=== PATIENT | female | born 1960 | race Caucasian/White ===

== ENCOUNTER → 2017-05-23 | Outpatient (CLI) | payer BC ==
[2017-05-23 12:59] LABS: CALCIUM 9.2 mg/dL (8.5-10.1); CREATININE 1.1 mg/dL (0.6-1.0); GFR 51.6; POTASSIUM 3.2 mmol/L (3.5-5.1)
[2017-05-23 13:12] LABS: BASO # 0.1 x10^3/uL (0.0-0.2); BASO % 1 % (0-3); EOS # 0.2 x10^3/uL (0.0-0.7); EOS % 3 % (0-3); HEMATOCRIT 39.5 % (36.0-47.0); HEMOGLOBIN 13.6 g/dL (12.0-15.5); LYMPH # 1.8 x10^3/uL (1.0-4.8); LYMPH % 28 % (24-48); MEAN CORPUSCULAR HEMOGLOBIN 32 pg (25-35); MEAN CORPUSCULAR HGB CONC 34 g/dL (31-37); MEAN CORPUSCULAR VOLUME 92 fL (79-100); MONO # 0.4 x10^3/uL (0.0-1.1); MONO % 7 % (0-9); NEUT # 3.9 x10^3uL (1.8-7.7); NEUT % 62 % (31-73); PLATELET COUNT 257 x10^3/uL (140-400); RED BLOOD COUNT 4.29 x10^6/uL (3.50-5.40); RED CELL DISTRIBUTION WIDTH 13.7 % (11.5-14.5); WHITE BLOOD COUNT 6.3 x10^3/uL (4.0-11.0)
[2017-05-23 13:18] LABS: BILIRUBIN,URINE NEG (NEG); CLARITY,URINE CLEAR; COLOR,URINE STRAW; GLUCOSE,URINE NEG (NEG)
[2017-05-23 13:19] LABS: NITRITE,URINE NEG (NEG); UROBILINOGEN,URINE 0.2 mg/dL (0.2 mg/dL)
== END | disposition home or self-care (01) ==
LOC: LAB 12:06
PROVIDERS: ATTEND Nurse Practitioner
DX: R55 Syncope and collapse (principal)
CPT/HCPCS: 36415; 80048; 81003; 84443; 85025

== ENCOUNTER 2017-06-24 17:21 | Emergency (ER) | payer BC ==
[2017-06-24] MEDS ORDERED: KETOROLAC 60 MG/2 ML VIAL. IM ONE (19:00)
[2017-06-24] MEDS ORDERED: HYDROcodone/APAP 5/325MG 1 TAB TABLET PO ONE (19:00)
--- NOTE | 2017-06-24 19:56 | RAD ---
EXAM: Left lower extremity venous Doppler sonogram. HISTORY: Pain. TECHNIQUE: Bee scale and color Doppler sonographic evaluation of the left lower extremity veins with spectral waveform analysis was performed. FINDINGS: There is normal color flow, normal compressibility and there are normal spectral waveforms in the common femoral, superficial femoral, popliteal, posterior tibial and greater saphenous veins. There is a small left knee effusion. IMPRESSION: 1. No Doppler evidence of lower extremity deep venous thrombosis. 2. Small left knee effusion. Electronically signed by: Sonam Felipe MD (06/24/2017 7:53 PM) [facility]
--- NOTE | 2017-06-24 20:25 | PHYS DOC ---
Past History Past Medical History: Fibromyalgia, Other Past Surgical History: No Surgical History Alcohol Use: None Drug Use: None Adult General Chief Complaint Chief Complaint: LOWER EXT PAIN HPI HPI 57-year-old morbidly obese female with past medical history of lymphedema now presents to the emergency department complaining of left lower extremity pain. Patient states she has pain behind her left calf and she was concerned she might have a blood clot. No skin changes. No fevers chills sweats or shaking chills. No productive cough or pleuritic pain. Patient has no shortness of breath or restaurant symptoms of any kind Review of Systems Review of Systems Constitutional: Denies fever or chills [] Eyes: Denies change in visual acuity, redness, or eye pain [] HENT: Denies nasal congestion or sore throat [] Respiratory: Denies cough or shortness of breath [] Cardiovascular: No additional information not addressed in HPI [] GI: Denies abdominal pain, nausea, vomiting, bloody stools or diarrhea [] : Denies dysuria or hematuria [] Musculoskeletal: Denies back pain or joint pain [] Integument: Denies rash or skin lesions [] Neurologic: Denies headache, focal weakness or sensory changes [] Endocrine: Denies polyuria or polydipsia [] Current Medications Current Medications Current Medications Medications (Trade) Dose Ordered Sig/[facility] Start Time Stop Time Status Last Admin Dose Admin Acetaminophen/ Hydrocodone Bitart (Lortab 5/325) 1 tab 1X ONCE 06/24/17 19:00 06/24/17 19:01 DC 06/24/17 19:45 1 TAB Ketorolac Tromethamine (Toradol) 60 mg 1X ONCE 06/24/17 19:00 06/24/17 19:01 DC 06/24/17 19:45 60 MG Allergies Allergies Allergies Coded Allergies Type Severity Reaction Last Updated Verified Penicillins Allergy Intermediate 06/24/17 Yes Sulfa (Sulfonamide Antibiotics) Allergy Intermediate 06/24/17 Yes Physical Exam Physical Exam Well-appearing morbidly obese female in no acute distress alert communicative cooperative and appropriate Constitutional: Well developed, well nourished, no acute distress, non-toxic appearance. [] HENT: Normocephalic, atraumatic, bilateral external ears normal, oropharynx moist, no oral exudates, nose normal. [] Eyes: PERRLA, EOMI, conjunctiva normal, no discharge. [] Neck: Normal range of motion, no tenderness, supple, no stridor. [] Cardiovascular:Heart rate regular rhythm, no murmur [] Lungs & Thorax: Bilateral breath sounds clear to auscultation [] Abdomen: Bowel sounds normal, soft, no tenderness, no masses, no pulsatile masses. [] Skin: Warm, dry, no erythema, no rash. [] Back: No tenderness, no CVA tenderness. [] Extremities: Left Mild soft tissue tenderness no erythema warmth or cords skin changes. No cyanosis, no clubbing, ROM intact, 2+ nonpitting edema bilateral lower extremities baseline per patient[] Neurologic: Alert and oriented X 3, normal motor function, normal sensory function, no focal deficits noted. [] Psychologic: Affect normal, judgement normal, mood normal. [] Current Patient Data Vital Signs Vital Signs Date Time Temp Pulse Resp B/P (MAP) Pulse Ox O2 Delivery O2 Flow Rate FiO2 06/24/17 17:26 98.3 84 16 98 Room Air EKG EKG [] Radiology/Procedures Radiology/Procedures [] Course & Med Decision Making Course & Med Decision Making Pertinent Labs and Imaging studies reviewed. (See chart for details) Signs and symptoms consistent with discomfort of lower extremities from chronic lymphedema versus possibility of acute DVT. No clinical evidence of cellulitis abscess or skin lesion. Soft compartments and no recent trauma. Ultrasound leg shows no DVT. Patient aware to elevate legs whenever possible and follow-up with her doctor regarding any adjustments that may be indicated in her diuretic regimen. No further workup or treatment indicated patient agrees with outpatient follow-up and strict return precautions given [] Dragon Disclaimer Dragon Disclaimer This chart was dictated in whole or in part using Voice Recognition software in a busy, high-work load, and often noisy Emergency Department environment. It may contain unintended and wholly unrecognized errors or omissions. Departure Departure: Impression: Primary Impression: Lymphedema Additional Impression: Lower extremity pain Disposition: 01 HOME, SELF-CARE Condition: STABLE Referrals: SAMMY TOVAR MD (PCP) Patient Instructions: Lymphedema Additional Instructions: It appears that the pain in her left leg is from your chronic lymphedema. You have no evidence of blood clot including neither a deep vein thrombosis or evidence of superficial venous thrombosis or phlebitis. Ultrasound of your left leg was unremarkable. Elevate both legs whenever possible to help with your chronic lymphedema. Follow-up with your doctor tomorrow to discuss your diuretic regimen and make adjustments if indicated. Take ibuprofen every 6 hours and Tylenol every 4 hours as needed for discomfort. Return immediately for new severe worsening symptoms Problem Qualifiers INES HU MD Jun 24, 2017 20:24
[2017-06-24 20:36] VITALS: BP 132/71
== END 2017-06-24 20:36 | disposition home or self-care (01) ==
LOC: ER 17:21
DX: I89.0 Lymphedema, not elsewhere classified (principal); M79.605 Pain in left leg; E66.01 Morbid (severe) obesity due to excess calories; M79.7 Fibromyalgia; Z88.0 Allergy status to penicillin; Z88.2 Allergy status to sulfonamides
CPT/HCPCS: 93971; 96372; 99284; J1885

== ENCOUNTER 2018-02-08 11:02 | Observation (INO) | payer BC, OTHER ==
[~2018-02-08] VITALS: Ht 165.1 cm; Wt 110.2 kg
--- NOTE | 2018-02-08 11:31 | PHYS DOC ---
Past History Past Medical History: Fibromyalgia, Hypertension, Other Past Surgical History: No Surgical History Additional Smoking Information: quitting smoking Alcohol Use: None Drug Use: None Adult General Chief Complaint Chief Complaint: General Complaint HPI HPI Patient is a 57-year-old morbidly obese female who presents for evaluation of general malaise. She states that she is just not feeling well. She states "I know there is something wrong". She does state that she feels tired and somewhat lightheaded and that she has been having some intermittent chest discomfort and shortness of breath. Her PCP is Dr. Sammy Rizzo. She reports a history of hypertension, lymphedema, hyperlipidemia, and fibromyalgia. She had a heart catheterization about 4 years ago which was unremarkable. She is alert and oriented 4, calm, and appears to be in no distress. She denies headache or vision changes, neck pain, abdominal pain, back or flank pain, nausea or vomiting, fevers or chills, rectal bleeding, or dysuria. Review of Systems Review of Systems Constitutional: Denies fever or chills, general malaise present Eyes: Denies change in visual acuity, redness, or eye pain [] HENT: Denies nasal congestion or sore throat [] Respiratory: Denies cough, mild SOB Cardiovascular: No additional information not addressed in HPI, +cp GI: Denies abdominal pain, nausea, vomiting, bloody stools or diarrhea [] : Denies dysuria or hematuria [] Musculoskeletal: Denies back pain or joint pain [] Integument: Denies rash or skin lesions [] Neurologic: Denies headache, focal weakness or sensory changes [] Endocrine: Denies polyuria or polydipsia [] All other systems were reviewed and found to be within normal limits, except as documented in this note. Allergies Allergies Allergies Coded Allergies Type Severity Reaction Last Updated Verified Penicillins Allergy Intermediate 06/24/17 Yes Sulfa (Sulfonamide Antibiotics) Allergy Intermediate 06/24/17 Yes Physical Exam Physical Exam Constitutional: Well developed, well nourished, no acute distress, non-toxic appearance. obese, pleasant, calm HENT: Normocephalic, atraumatic, bilateral external ears normal, oropharynx moist, no oral exudates, nose normal. [] Eyes: PERRLA, EOMI, conjunctiva normal, no discharge. [] Neck: Normal range of motion, no tenderness, supple, no stridor. [] Cardiovascular:Heart rate regular rhythm, no murmur [] Lungs & Thorax: Bilateral breath sounds clear to auscultation [] Abdomen: Bowel sounds normal, soft, no tenderness, no masses, no pulsatile masses. [] Skin: Warm, dry, no erythema, no rash. [] Back: No tenderness, no CVA tenderness. [] Extremities: No tenderness, no cyanosis, no clubbing, ROM intact, +significant lymphedema in b/l legs (pt states at baseline) Neurologic: Alert and oriented X 3, normal motor function, normal sensory function, no focal deficits noted. [] Psychologic: Affect normal, judgement normal, mood normal. [] Current Patient Data Vital Signs Vital Signs Date Time Temp Pulse Resp B/P (MAP) Pulse Ox O2 Delivery O2 Flow Rate FiO2 02/08/18 11:17 98.4 68 22 100 Room Air EKG EKG Sinus bradycardia, rate of 58, no acute ischemic findings, normal axis, no STEMI , reviewed and interpreted by myself Radiology/Procedures Radiology/Procedures [place] [id number] IMAGING REPORT Signed PATIENT: MONICA MANRIQUE ACCOUNT: [id number] : 1960 LOCATION: ER AGE: 57 SEX: F EXAM STATUS: REG ER ORD. PHYSICIAN: EVELYN TOMLINSON DO REASON: cp PROCEDURE: PORTABLE CHEST 1V Chest radiograph 02/08/2018 11:11 AM INDICATION: Chest pain COMPARISON: CT chest May 28, 2013 TECHNIQUE: Frontal view of the chest is provided. FINDINGS: The cardiomediastinal silhouette is within normal limits. There are no pleural effusions. There is no pulmonary vascular congestion. There is no pneumothorax. The lungs are clear. No significant osseous abnormality is identified. IMPRESSION: No acute cardiopulmonary process. Electronically signed by: Jose Mejia MD (02/08/2018 11:33 AM) [facility] DICTATED AND SIGNED BY: JOSE MEJIA MD DATE: 02/08/18 1133 CC: EVELYN TOMLINSON DO; SAMMY TOVAR MD ~ Course & Med Decision Making Course & Med Decision Making Pertinent Labs and Imaging studies reviewed. (See chart for details) @ 1315 - patient updated on lab and imaging results. She agrees with the plan to be admitted. Dr. Rizzo accepts the observation admission. Dragon Disclaimer Dragon Disclaimer This electronic medical record was generated, in whole or in part, using a voice recognition dictation system. Departure Departure: Impression: Primary Impression: Chest pain Additional Impression: Fatigue Disposition: ADMITTED INPATIENT Admitting Physician: Sammy Tovar Condition: STABLE Referrals: SAMMY TOVAR MD (PCP) Problem Qualifiers EVELYN TOMLINSON DO Feb 08, 2018 11:31
--- NOTE | 2018-02-08 11:37 | RAD ---
Chest radiograph 02/08/2018 11:11 AM INDICATION: Chest pain COMPARISON: CT chest May 28, 2013 TECHNIQUE: Frontal view of the chest is provided. FINDINGS: The cardiomediastinal silhouette is within normal limits. There are no pleural effusions. There is no pulmonary vascular congestion. There is no pneumothorax. The lungs are clear. No significant osseous abnormality is identified. IMPRESSION: No acute cardiopulmonary process. Electronically signed by: Sera Pollock MD (02/08/2018 11:33 AM) [facility]
[2018-02-08] MEDS ORDERED: ASPIRIN 325 MG TABLET PO ONE (11:45)
--- NOTE | 2018-02-08 12:02 | EKG ---
[address] [address] Test Date: 2018-02-08 Test Time: 11:55:57 Pat Name: MONICA MANRIQUE Department: Room: Gender: F [employer]: : 1960 Requested By: EVELYN TOMLINSON Order Number: [id number] Reading MD: Santo Escobedo MD Measurements Intervals [place] Rate: 58 P: 36 NV: 212 QRS: 35 QRSD: 90 T: 63 QT: 438 QTc: 429 Interpretive Statements SINUS RHYTHM Electronically Signed On 02-12-2018 14:17:12 CDT by Santo Escobedo MD
[2018-02-08 12:43] LABS: BASO # 0.1 x10^3/uL (0.0-0.2); BASO % 1 % (0-3); EOS # 0.4 x10^3/uL (0.0-0.7); EOS % 6 % (0-3); HEMATOCRIT 44.2 % (36.0-47.0); LYMPH # 1.8 x10^3/uL (1.0-4.8); LYMPH % 31 % (24-48); MEAN CORPUSCULAR HEMOGLOBIN 32 pg (25-35); MEAN CORPUSCULAR HGB CONC 34 g/dL (31-37); MEAN CORPUSCULAR VOLUME 94 fL (79-100); MONO # 0.3 x10^3/uL (0.0-1.1); MONO % 6 % (0-9); NEUT # 3.2 x10^3uL (1.8-7.7); NEUT % 56 % (31-73); PLATELET COUNT 240 x10^3/uL (140-400); RED BLOOD COUNT 4.72 x10^6/uL (3.50-5.40); WHITE BLOOD COUNT 5.8 x10^3/uL (4.0-11.0)
[2018-02-08 12:49] LABS: BACTERIA,URINE 0 /HPF (0-FEW); BILIRUBIN,URINE NEG (NEG); CLARITY,URINE CLEAR; COLOR,URINE YELLOW; GLUCOSE,URINE NEG (NEG); NITRITE,URINE NEG (NEG); RBC,URINE OCC /HPF (0-2); UROBILINOGEN,URINE 0.2 mg/dL (0.2 mg/dL)
[2018-02-08 12:50] LABS: SQUAMOUS EPITHELIAL CELL,UR FEW /LPF
[2018-02-08] MEDS ORDERED: LOVA40TA2 PO (12:50)
[2018-02-08] MEDS ORDERED: MELO15TA23 PO (12:50)
[2018-02-08] MEDS ORDERED: LEVO50TA5 PO (12:50)
[2018-02-08] MEDS ORDERED: POTA10TA10 PO ×3 (12:50→17:09)
[2018-02-08] MEDS ORDERED: LISI-334 PO (12:50)
[2018-02-08] MEDS ORDERED: FURO-68 PO (12:50)
[2018-02-08] MEDS ORDERED: PANT40TA3 PO (12:50)
[2018-02-08 13:04] LABS: ALBUMIN 4.3 g/dL (3.4-5.0); ALBUMIN/GLOBULIN RATIO 1.3 (1.0-1.7); CALCIUM 9.2 mg/dL (8.5-10.1); CREATININE 1.1 mg/dL (0.6-1.0); GFR 51.6; MAGNESIUM 2.3 mg/dL (1.8-2.4); POTASSIUM 3.7 mmol/L (3.5-5.1); TOTAL BILIRUBIN 0.5 mg/dL (0.2-1.0); TOTAL PROTEIN 7.7 g/dL (6.4-8.2)
[2018-02-08 15:50] VITALS: BP 116/79
[2018-02-08] MEDS ORDERED: CHOL10003 PO (17:09)
[2018-02-08] MEDS ORDERED: CETI10TA16 PO (17:09)
[2018-02-08] MEDS ORDERED: OMEP40CA5 PO (17:09)
[2018-02-08] MEDS ORDERED: ASPI-630 PO (17:09)
[2018-02-08] MEDS ORDERED: FLAX100031 PO (17:09)
[2018-02-08 19:46] VITALS: BP 132/74
[2018-02-08] MEDS: CHOLECALCIFEROL (VITAMIN D3) 1,000 UNIT TABLET PO SCH (20:46)
[2018-02-08] MEDS ORDERED: POTASSIUM CHLORIDE 10 MEQ TABLET.ER. PO SCH (21:00)
[2018-02-08 22:29] VITALS: BP 111/54
[2018-02-09 03:00] VITALS: BP 110/60
[2018-02-09] MEDS ORDERED: LEVOTHYROXINE 50 MCG TABLET PO SCH (07:00)
[2018-02-09 08:08] VITALS: BP 120/68
[2018-02-09] MEDS: CHOLECALCIFEROL (VITAMIN D3) 1,000 UNIT TABLET PO SCH (08:22)
[2018-02-09] MEDS ORDERED: POTASSIUM CHLORIDE 20 MEQ TABLET.ER. PO SCH (09:00)
[2018-02-09] MEDS ORDERED: MELOXICAM 15 MG TABLET. PO SCH (09:00)
[2018-02-09] MEDS ORDERED: LISINOPRIL 20 MG TABLET PO SCH ×2 (09:00→21:00)
[2018-02-09] MEDS ORDERED: ATORVASTATIN CALCIUM 10 MG TABLET. PO SCH ×2 (09:00→21:00)
[2018-02-09] MEDS ORDERED: CETIRIZINE HCL 10 MG TABLET PO SCH ×2 (09:00→21:00)
[2018-02-09] MEDS ORDERED: FUROSEMIDE 40 MG TABLET PO SCH (09:00)
[2018-02-09] MEDS ORDERED: ASPIRIN 81 MG TAB.CHEW PO SCH (09:00)
[2018-02-09] MEDS ORDERED: NON FORMULARY ITEM (Flaxseed Oil (Flaxseed) 1,000 MG) PO SCH (09:00)
[2018-02-09] MEDS ORDERED: FLUCONAZOLE 100 MG TABLET. PO SCH (09:00)
[2018-02-09] MEDS ORDERED: PANTOPRAZOLE 40 MG TABLET. PO SCH (09:00)
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
[2018-02-09 12:55] LABS: FREE T4 1.15 ng/dL (0.76-1.46); THYROID STIM HORMONE (TSH) 1.619 uIU/mL (0.358-3.740)
== END 2018-02-09 11:00 | disposition home or self-care (01) ==
LOC: ER 11:02 → INTOOBSV 14:34 → 1 SOUTH 14:34
PROVIDERS: ADMIT Family Medicine; ATTEND Family Medicine
DX: R07.9 Chest pain, unspecified (principal); R42 Dizziness and giddiness; I25.10 Atherosclerotic heart disease of native coronary artery without angina pectoris; I10 Essential (primary) hypertension; E78.5 Hyperlipidemia, unspecified; E78.00 Pure hypercholesterolemia, unspecified; F17.210 Nicotine dependence, cigarettes, uncomplicated; K21.9 Gastro-esophageal reflux disease without esophagitis; F41.9 Anxiety disorder, unspecified; E66.01 Morbid (severe) obesity due to excess calories
CPT/HCPCS: 36415; 71045; 80053; 80061; 81001; 82553; 83690; 83735; 83880; 84439; 84443; 84484; 85025; 93005; 99285; G0378; G0379

== ENCOUNTER → 2018-05-10 | Outpatient (CLI) | payer OTHER ==
[~2018-05-10] MED LIST: ASPI-630 PO; CETI10TA16 PO; CHOL10003 PO; FLAX100031 PO; FURO-68 PO; LEVO50TA5 PO; LISI-334 PO; LOVA40TA2 PO; MELO15TA23 PO; OMEP40CA5 PO; PANT40TA3 PO; POTA10TA10 PO
--- NOTE | 2018-05-10 15:14 | RAD ---
Examination: CT of the abdomen pelvis without contrast HISTORY: History of hematuria, left flank pain COMPARISON: None available TECHNIQUE: Axial CT images of the abdomen pelvis were performed without contrast. Coronal and sagittal reformats are performed Exposure: One or more of the following individualized dose reduction techniques were utilized for this examination: 1. Automated exposure control 2. Adjustment of the mA and/or kV according to patient size 3. Use of iterative reconstruction technique FINDINGS: The visualized bibasilar lungs are clear. No evidence of free air identified in the abdomen. The evaluation of the solid organs is limited due to lack of IV contrast. The evaluation of bowel is limited due to lack of oral contrast. The visualized noncontrasted liver, spleen, adrenals grossly appears unremarkable. Cholecystectomy clips identified. The stomach is minimally distended. The visualized pancreas grossly appears unremarkable. The small bowel is nondilated. The appendix is not clearly identified. Feces and gas identified in the colon. Few sigmoid colon diverticulosis identified. No evidence of intrarenal collecting system calculi or hydronephrosis. Tiny focus of air identified in the urinary bladder. No evidence of lytic bony destructive lesion. IMPRESSION: 1. No evidence of intrarenal collecting system calculi or hydronephrosis. 2. Tiny focus of air identified in the urinary bladder could be due to recent instrumentation or cystitis. Correlate with lab values. 3. Sigmoid colon diverticulosis. Electronically signed by: Addy Vo MD (05/10/2018 3:11 PM) [id number]
== END | disposition home or self-care (01) ==
LOC: CT 09:37
PROVIDERS: ATTEND Nurse Practitioner Family
DX: K57.30 Diverticulosis of large intestine without perforation or abscess without bleeding (principal); E66.01 Morbid (severe) obesity due to excess calories; I25.10 Atherosclerotic heart disease of native coronary artery without angina pectoris; K21.9 Gastro-esophageal reflux disease without esophagitis; E78.00 Pure hypercholesterolemia, unspecified; F17.210 Nicotine dependence, cigarettes, uncomplicated; Z88.0 Allergy status to penicillin; Z88.2 Allergy status to sulfonamides; Z86.2 Personal history of diseases of the blood and blood-forming organs and certain disorders involving the immune mechanism
CPT/HCPCS: 74176

== ENCOUNTER 2018-09-11 18:16 | Emergency (ER) | payer OTHER ==
[~2018-09-11] VITALS: Ht 165.1 cm; Wt 110.2 kg
[2018-09-11] MEDS ORDERED: IV NORMAL SALINE 1,000ML 1,000 ML IV SCH (19:43)
[2018-09-11] MEDS ORDERED: ACETAMINOPHEN 500 MG TABLET PO ONE (20:00)
[2018-09-11] MEDS ORDERED: FAMOTIDINE 20 MG/2 ML VIAL IVP ONE (20:00)
[2018-09-11] MEDS ORDERED: ONDANSETRON PF 4 MG/2 ML VIAL. IV ONE (20:00)
[2018-09-11 20:12] LABS: BASO % 1 % (0-3); EOS % 0 % (0-3); HEMATOCRIT 43.1 % (36.0-47.0); HEMOGLOBIN 14.5 g/dL (12.0-15.5); LYMPH # 0.3 x10^3/uL (1.0-4.8); LYMPH % 5 % (24-48); MEAN CORPUSCULAR HEMOGLOBIN 32 pg (25-35); MEAN CORPUSCULAR HGB CONC 34 g/dL (31-37); MEAN CORPUSCULAR VOLUME 94 fL (79-100); MONO # 0.4 x10^3/uL (0.0-1.1); MONO % 5 % (0-9); NEUT % 89 % (31-73); PLATELET COUNT 201 x10^3/uL (140-400); RED BLOOD COUNT 4.58 x10^6/uL (3.50-5.40); RED CELL DISTRIBUTION WIDTH 13.4 % (11.5-14.5); WHITE BLOOD COUNT 6.7 x10^3/uL (4.0-11.0)
[2018-09-11 20:28] LABS: ALBUMIN 3.6 g/dL (3.4-5.0); ALBUMIN/GLOBULIN RATIO 1.1 (1.0-1.7); CALCIUM 8.5 mg/dL (8.5-10.1); GFR 57.4; POTASSIUM 3.7 mmol/L (3.5-5.1); TOTAL BILIRUBIN 0.5 mg/dL (0.2-1.0)
[2018-09-11 20:30] VITALS: BP 155/76
[2018-09-11 20:43] LABS: INFLUENZA A PATIENT NEGATIVE (NEGATIVE); INFLUENZA B PATIENT NEGATIVE (NEGATIVE)
[2018-09-11 21:06] LABS: BACTERIA,URINE 0 /HPF (0-FEW); BILIRUBIN,URINE NEG (NEG); CLARITY,URINE HAZY; COLOR,URINE AMBER; GLUCOSE,URINE NEG (NEG); NITRITE,URINE NEG (NEG); SQUAMOUS EPITHELIAL CELL,UR MOD /LPF; UROBILINOGEN,URINE 1 mg/dL (0.2 mg/dL)
[2018-09-11] MEDS ORDERED: ONDA4TAB7 PO (22:20)
[2018-09-11] MEDS ORDERED: FAMO-63 PO (22:20)
--- NOTE | 2018-09-11 22:21 | PHYS DOC ---
Past History Past Medical History: Fibromyalgia, Hypertension, Other Past Surgical History: Hysterectomy Alcohol Use: None Drug Use: None Adult General Chief Complaint Chief Complaint: FLU SYMPTOM HPI HPI Patient is a 58 year old female who presents with complaint of abdominal pain, nausea, vomiting, and diarrhea, and fever. Patient states that her symptoms started suddenly today. Patient states that her daughter has had similar symptoms at home. Has not taken any medications for her symptoms. Patient states that she has felt very fatigued and has been sleeping at home since onset of symptoms. Patient is unable to tolerate oral intake at this time. Patient states that the pain is in her upper abdomen. Denies radiation of pain. Review of Systems Review of Systems Constitutional: Fever, chills[] Eyes: Denies change in visual acuity, redness, or eye pain [] HENT: Denies nasal congestion or sore throat [] Respiratory: Denies cough or shortness of breath [] Cardiovascular: Denies chest pain or edema[] GI: Abdominal pain, nausea, vomiting, diarrhea[] : Denies dysuria or hematuria [] Musculoskeletal: Denies back pain or joint pain [] Integument: Denies rash or skin lesions [] Neurologic: Denies headache, focal weakness or sensory changes [] All other systems were reviewed and found to be within normal limits, except as documented in this note. Current Medications Current Medications Current Medications Medications (Trade) Dose Ordered Sig/Dolly Start Time Stop Time Status Last Admin Dose Admin Acetaminophen (Tylenol) 1,000 mg 1X ONCE 09/11/18 20:00 09/11/18 20:01 DC 09/11/18 20:22 1,000 MG Famotidine (Pepcid Vial) 20 mg 1X ONCE 09/11/18 20:00 09/11/18 20:01 DC 09/11/18 20:22 20 MG Ondansetron HCl (Zofran) 4 mg 1X ONCE 09/11/18 20:00 09/11/18 20:01 DC 09/11/18 20:22 4 MG Sodium Chloride 1,000 ml @ 1,000 mls/hr Q1H 09/11/18 19:43 09/11/18 20:42 DC 09/11/18 20:22 1,000 MLS/HR Allergies Allergies Allergies Coded Allergies Type Severity Reaction Last Updated Verified Penicillins Allergy Intermediate 06/24/17 Yes Sulfa (Sulfonamide Antibiotics) Allergy Intermediate 06/24/17 Yes duloxetine Allergy Mild 02/08/18 Yes Physical Exam Physical Exam Constitutional: Alert, afebrile, appears ill and fatigued. [] HENT: Normocephalic, atraumatic, bilateral external ears normal, oropharynx moist, no oral exudates, nose normal. [] Eyes: PERRLA, EOMI, conjunctiva normal, no discharge. [] Neck: Normal range of motion, no tenderness, supple, no stridor. [] Cardiovascular:Heart rate regular rhythm, no murmur [] Lungs & Thorax: Bilateral breath sounds clear to auscultation [] Abdomen: Bowel sounds normal, soft, mild epigastric tenderness with no guarding or rebound tenderness, no masses, no pulsatile masses. [] Skin: Warm, dry, no erythema, no rash. [] Back: No tenderness, no CVA tenderness. [] Extremities: No tenderness, no cyanosis, no clubbing, ROM intact, no edema. [] Neurologic: Alert and oriented X 3, normal motor function, normal sensory function, no focal deficits noted. [] Current Patient Data Vital Signs Vital Signs Date Time Temp Pulse Resp B/P (MAP) Pulse Ox O2 Delivery O2 Flow Rate FiO2 09/11/18 20:30 86 18 155/76 (102) 96 Room Air 09/11/18 19:10 100.0 Lab Results Laboratory Tests Test 09/11/18 19:54 09/11/18 20:20 White Blood Count 6.7 x10^3/uL (4.0-11.0) Red Blood Count 4.58 x10^6/uL (3.50-5.40) Hemoglobin 14.5 g/dL (12.0-15.5) Hematocrit 43.1 % (36.0-47.0) Mean Corpuscular Volume 94 fL (79-100) Mean Corpuscular Hemoglobin 32 pg (25-35) Mean Corpuscular Hemoglobin Concent 34 g/dL (31-37) Red Cell Distribution Width 13.4 % (11.5-14.5) Platelet Count 201 x10^3/uL (140-400) Neutrophils (%) (Auto) 89 % (31-73) H Lymphocytes (%) (Auto) 5 % (24-48) L Monocytes (%) (Auto) 5 % (0-9) Eosinophils (%) (Auto) 0 % (0-3) Basophils (%) (Auto) 1 % (0-3) Neutrophils # (Auto) 6.0 x10^3uL (1.8-7.7) Lymphocytes # (Auto) 0.3 x10^3/uL (1.0-4.8) L Monocytes # (Auto) 0.4 x10^3/uL (0.0-1.1) Eosinophils # (Auto) 0.0 x10^3/uL (0.0-0.7) Basophils # (Auto) 0.0 x10^3/uL (0.0-0.2) Sodium Level 141 mmol/L (136-145) Potassium Level 3.7 mmol/L (3.5-5.1) Chloride Level 105 mmol/L (98-107) Carbon Dioxide Level 28 mmol/L (21-32) Anion Gap 8 (6-14) Blood Urea Nitrogen 20 mg/dL (7-20) Creatinine 1.0 mg/dL (0.6-1.0) Estimated GFR (Cockcroft-Gault) 57.4 BUN/Creatinine Ratio 20 (6-20) Glucose Level 115 mg/dL (70-99) H Calcium Level 8.5 mg/dL (8.5-10.1) Total Bilirubin 0.5 mg/dL (0.2-1.0) Aspartate Amino Transferase (AST) 21 U/L (15-37) Alanine Aminotransferase (ALT) 35 U/L (14-59) Alkaline Phosphatase 71 U/L (46-116) Total Protein 7.0 g/dL (6.4-8.2) Albumin 3.6 g/dL (3.4-5.0) Albumin/Globulin Ratio 1.1 (1.0-1.7) Lipase 94 U/L (73-393) Influenza Type A (Rapid) Negative (NEGATIVE) Influenza Type B (Rapid) Negative (NEGATIVE) Urine Collection Type Unknown Urine Color Julia Urine Clarity Hazy Urine pH 6.0 Urine Specific [place] 1.025 Urine Protein 30 mg/dl (NEG-TRACE) Urine Glucose (UA) Neg mg/dL (NEG) Urine Ketones (Stick) Trace mg/dL (NEG) Urine Blood Small (NEG) Urine Nitrite Neg (NEG) Urine Bilirubin Neg (NEG) Urine Urobilinogen Dipstick 1 mg/dL (0.2 mg/dL) Urine Leukocyte Esterase Neg (NEG) Urine RBC 3-5 /HPF (0-2) Urine WBC 1-4 /HPF (0-4) Urine Squamous Epithelial Cells Mod /LPF Urine Bacteria 0 /HPF (0-FEW) Urine Mucus Mod /LPF EKG EKG Not performed[] Radiology/Procedures Radiology/Procedures Not performed[] Course & Med Decision Making Course & Med Decision Making Pertinent Labs and Imaging studies reviewed. (See chart for details) Patient was given IV fluids, Zofran, Pepcid, and Tylenol. Patient tolerating oral intake at this time. Symptoms appear consistent with viral gastroenteritis. Advised follow-up with primary doctor in 2 days for reevaluation and return to emergency department for any worsening symptoms. Patient was understanding and in agreement with treatment plan. Dragon Disclaimer Dragon Disclaimer This electronic medical record was generated, in whole or in part, using a voice recognition dictation system. Departure Departure: Impression: Primary Impression: Viral gastroenteritis Disposition: HOME, SELF-CARE Condition: IMPROVED Referrals: SAMMY TOVAR MD (PCP) Patient Instructions: Viral Gastroenteritis Additional Instructions: Follow-up with your primary doctor in 2 days for reevaluation. Return to the emergency department for any worsening symptoms. Scripts Famotidine (PEPCID) 20 Mg Tablet 1 TAB PO BID, #20 TAB 0 Refills Prov: FILOMENA DEVINE MD 09/11/18 Ondansetron Hcl (ZOFRAN) 4 Mg Tablet 1 TAB PO Q8HRS PRN for NAUSEA/VOMITING, #20 TAB Prov: FILOMENA DEVINE MD 09/11/18 FILOMENA DEVINE MD Sep 11, 2018 22:20
== END 2018-09-11 22:29 | disposition home or self-care (01) ==
LOC: ER 18:16
DX: A08.4 Viral intestinal infection, unspecified (principal); R11.2 Nausea with vomiting, unspecified; R19.7 Diarrhea, unspecified; M79.7 Fibromyalgia; I10 Essential (primary) hypertension; Z88.0 Allergy status to penicillin; Z88.2 Allergy status to sulfonamides; Z88.8 Allergy status to other drugs, medicaments and biological substances
CPT/HCPCS: 36415; 80053; 81001; 83690; 85025; 87804; 96361; 96374; 96375; 99283; J2405; J3490; J7030

== ENCOUNTER → 2019-06-12 | Outpatient (CLI) | payer MEDICAID, MEDICARE, OTHER ==
[~2019-06-12] MED LIST changes: +FAMO-63 PO; +OMEP40CA45 PO; -OMEP40CA5 PO; +ONDA4TAB7 PO
--- NOTE | 2019-06-13 14:07 | RAD ---
DATE: 06/12/2019 EXAM: MAMMO CORBY SCREENING BILATERAL HISTORY: Routine screening COMPARISON: CTA chest 04/28/2013 This study was interpreted with the benefit of Computerized Aided Detection (CAD). Breast Density: HETERO The breast parenchyma is heterogenously dense, which could reduce sensitivity of mammography. Breast parenchyma level C. FINDINGS: No suspicious calcification, mass, or distortion. Right upper breast intramammary lymph node is be present. There may be a corresponding finding on previous CTA of the chest dated 04/28/2013. IMPRESSION: Benign findings BI-RADS CATEGORY: 2 BENIGN FINDING(S) RECOMMENDED FOLLOW-UP: 12M 12 MONTH FOLLOW-UP PQRS compliance statement: Patient information was entered into a reminder system with a target due date for the next mammogram. Mammography is a sensitive method for finding small breast cancers, but it does not detect them all and is not a substitute for careful clinical examination. A negative mammogram does not negate a clinically suspicious finding and should not result in delay in biopsying a clinically suspicious abnormality. "Our facility is accredited by the [employer] Mammography Program."
== END | disposition home or self-care (01) ==
LOC: MAMMO 08:11
PROVIDERS: ATTEND Family Medicine
DX: Z12.31 Encounter for screening mammogram for malignant neoplasm of breast (principal)
CPT/HCPCS: 77063; 77067